=== PATIENT | male | born 1980 | race Caucasian/White ===

== ENCOUNTER 2022-04-23 17:01 | Emergency (ER) | payer MEDICAID ==
[~2022-04-23] VITALS: Ht 160 cm; Wt 86.0 kg
[2022-04-23] MEDS ORDERED: IBUPROFEN 600MG TABLET PO ONE (20:45)
[2022-04-23] MEDS ORDERED: LIDOCAINE HCL/PF 0.5% 5 MG/ML 50ML VIAL INFIL ONE (21:30)
[2022-04-23] MEDS ORDERED: LIDOCAINE HCL 1% 20ML VIAL (Pyxis) INJ INFIL NR (21:45)
[2022-04-23 22:44] VITALS: BP 122/75
== END 2022-04-23 22:44 | disposition home or self-care (01) ==
LOC: ER 17:01
DX: S63.257A Unspecified dislocation of left little finger, initial encounter (principal); Y93.67 Activity, basketball; Y93.B3 Activity, free weights; Y92.320 Baseball field as the place of occurrence of the external cause
CPT/HCPCS: 26770; 73140; 99284; J3490